=== PATIENT | female | born 1975 | race Asian ===

== ENCOUNTER → 2017-11-28 | Outpatient (CLI) | END | disposition home or self-care (01) ==

== ENCOUNTER → 2018-10-01 | Outpatient (CLI) | payer BC | END | disposition home or self-care (01) | LOC: LAB 11:33 | PROVIDERS: ATTEND Internal Medicine | DX: J20.9 Acute bronchitis, unspecified (principal); R06.02 Shortness of breath; D64.9 Anemia, unspecified; E55.9 Vitamin D deficiency, unspecified; M47.892 Other spondylosis, cervical region; E78.5 Hyperlipidemia, unspecified | CPT/HCPCS: 71046; 72040; 80053; 80061; 81001; 82306; 82728; 85025 ==